=== PATIENT | female | born 1990 | race Caucasian/White ===

== ENCOUNTER 2018-04-20 18:36 | Emergency (ER) | payer SELFPAY ==
[~2018-04-20] VITALS: Ht 175.3 cm; Wt 145.1 kg
[~2018-04-20 18:36] MED LIST: CEPH-264 PO; LEVO125T5 PO
[2018-04-20] MEDS ORDERED: ERYT1OIN6 RIGHTEYE (19:13)
--- NOTE | 2018-04-20 19:13 | PHYS DOC ---
Past History Past Medical History: Hypothyroid, Kidney Stones, Other Past Surgical History: Smoking: Cigarettes, Less than 1pk/day Additional Smoking Information: 2/DAY--CUTTING BACK AND TRYING TO QUIT Alcohol Use: Occasionally Drug Use: None Adult General Chief Complaint Chief Complaint: EYE PROBLEMS HPI HPI Patient is a 27 year old female who presents with complaint of sinus congestion and redness to the right eye. Patient states her sinus congestion has been present over the past 2-3 days. The patient states she has not been taken any medications for her symptoms. Patient developed redness and drainage from the right eye yesterday and states this progressed throughout the day. Patient states the drainage from her right eye has been thick. Patient is concerned she may have pink eye. Denies any sore throat, fever, or shortness of breath. Patient has had postnasal drip with associated coughing that is worse at nighttime. Review of Systems Review of Systems Constitutional: Denies fever or chills [] Eyes: Redness and drainage from right eye, denies change in visual acuity or eye pain[] HENT: Nasal congestion, sinus pressure, postnasal drip, denies sore throat[] Respiratory: Cough, denies shortness of breath[] Cardiovascular: Denies chest pain or edema[] GI: Denies abdominal pain, nausea, vomiting, bloody stools or diarrhea [] : Denies dysuria or hematuria [] Musculoskeletal: Denies back pain or joint pain [] Integument: Denies rash or skin lesions [] Neurologic: Denies headache, focal weakness or sensory changes [] All other systems were reviewed and found to be within normal limits, except as documented in this note. Allergies Allergies Allergies Coded Allergies Type Severity Reaction Last Updated Verified acetaminophen Allergy Unknown Non-specific allergy 02/10/15 No oxycodone Allergy Unknown Non-specific allergy 02/10/15 No propoxyphene Allergy Unknown Non specific allergy 02/10/15 No Physical Exam Physical Exam Constitutional: Well developed, well nourished, no acute distress, non-toxic appearance. [] HENT: Normocephalic, atraumatic, bilateral external ears normal, sinuses nontender to palpation, oropharynx moist, no oral exudates, mild to moderate nasal mucosal edema bilaterally. [] Eyes: PERRLA, EOMI, right conjunctiva and sclera are injected, mucoid watery discharge from right eye. [] Neck: Normal range of motion, no tenderness, supple, no stridor. [] Cardiovascular:Heart rate regular rhythm, no murmur [] Lungs & Thorax: Bilateral breath sounds clear to auscultation [] Abdomen: Bowel sounds normal, soft, no tenderness, no masses, no pulsatile masses. [] Skin: Warm, dry, no erythema, no rash. [] Back: No tenderness, no CVA tenderness. [] Extremities: No tenderness, no cyanosis, no clubbing, ROM intact, no edema. [] Neurologic: Alert and oriented X 3, normal motor function, normal sensory function, no focal deficits noted. [] Current Patient Data Vital Signs Vital Signs Date Time Temp Pulse Resp B/P (MAP) Pulse Ox O2 Delivery O2 Flow Rate FiO2 04/20/18 18:40 98.2 108 20 96 Room Air Lab Results None performed EKG EKG Not performed[] Radiology/Procedures Radiology/Procedures Not performed[] Course & Med Decision Making Course & Med Decision Making Pertinent Labs and Imaging studies reviewed. (See chart for details) Patient appears to have signs of bacterial conjunctivitis on exam. Treated with erythromycin ophthalmic ointment. The patient's sinus pressure appears due to allergic sinusitis versus possible viral sinusitis. Recommended use of Mucinex, Afrin, saline nasal spray, an antihistamine for treatment at home. Also recommended use of warm moist air to help relieve congestion. Recommended follow -up in one week with primary doctor for reevaluation and return the emergency department for any worsening symptoms. Patient was understanding and in agreement with treatment plan.[] Dragon Disclaimer Dragon Disclaimer This electronic medical record was generated, in whole or in part, using a voice recognition dictation system. Departure Departure: Impression: Primary Impression: Bacterial conjunctivitis of right eye Additional Impression: Sinus congestion Disposition: 01 HOME, SELF-CARE Condition: IMPROVED Referrals: DONNA DE LA FUENTE (PCP) Patient Instructions: Bacterial Conjunctivitis Additional Instructions: Follow-up with your primary doctor in 1 week for reevaluation. Return to the emergency department for any worsening symptoms. Scripts Erythromycin Base (Erythromycin) 1 Gm Oint...g. 0.5 INCH RIGHTEYE QID for 5 Days, #1 TUBE Prov: AMBROSE MYRICK MD 04/20/18 Problem Qualifiers AMBROSE MYRICK MD Apr 20, 2018 19:13
[2018-04-20 19:25] VITALS: BP 153/87
[2018-04-20] MEDS: ERYTHROMYCIN 0.5% OPHTH OINTMENT 1GM TUBE. OD ONE (19:28)
== END 2018-04-20 19:27 | disposition home or self-care (01) ==
LOC: ER 18:36
DX: H10.89 Other conjunctivitis (principal); B96.89 Other specified bacterial agents as the cause of diseases classified elsewhere; R09.81 Nasal congestion; E03.9 Hypothyroidism, unspecified; F17.210 Nicotine dependence, cigarettes, uncomplicated; Z87.440 Personal history of urinary (tract) infections; Z88.6 Allergy status to analgesic agent; Z88.5 Allergy status to narcotic agent; Z88.8 Allergy status to other drugs, medicaments and biological substances
CPT/HCPCS: 99283

== ENCOUNTER 2018-07-07 22:30 | Emergency (ER) | payer OTHER ==
[~2018-07-07] VITALS: Ht 175.3 cm; Wt 145.1 kg
[~2018-07-07 22:30] MED LIST changes: +ERYT1OIN6 RIGHTEYE
[2018-07-07] MEDS ORDERED: BUDESONIDE 0.5 MG/2 ML NEBU NEB ONE (22:45)
[2018-07-07] MEDS ORDERED: ALBUTEROL SULFATE 2.5 MG/3 ML NEBU. NEB ONE (22:45)
--- NOTE | 2018-07-07 22:45 | PHYS DOC ---
Past History Past Medical History: Asthma, Hypothyroid, Kidney Stones, Other Past Surgical History: Smoking: Cigarettes, Less than 1pk/day Alcohol Use: Occasionally Drug Use: None Adult General Chief Complaint Chief Complaint: ASTHMA HPI HPI Patient is a 28-year-old female who presents with difficulty breathing that began shortly prior to arrival, she was working up front in the emergency department when the symptoms started. She denies any fever. Denies any recent steroid use, with her last steroids being approximately 7 months ago. [place] any fever, denies any trauma.[] Review of Systems Review of Systems Constitutional: Denies fever or chills [] Eyes: Denies change in visual acuity, redness, or eye pain [] HENT: Denies nasal congestion or sore throat [] Respiratory: See history of present illness[] Cardiovascular: Chest pain or palpitations[] GI: Denies abdominal pain, nausea, vomiting, bloody stools or diarrhea [] : Denies dysuria or hematuria [] Musculoskeletal: Denies back pain or joint pain [] Integument: Denies rash or skin lesions [] Neurologic: Denies headache, focal weakness or sensory changes [] Endocrine: Denies polyuria or polydipsia [] All other systems were reviewed and found to be within normal limits, except as documented in this note. Allergies Allergies Allergies Coded Allergies Type Severity Reaction Last Updated Verified acetaminophen Allergy Unknown Non-specific allergy 02/10/15 No oxycodone Allergy Unknown Non-specific allergy 02/10/15 No propoxyphene Allergy Unknown Non specific allergy 02/10/15 No Physical Exam Physical Exam Constitutional: Well developed, well nourished, no acute distress, non-toxic appearance. [] HENT: Normocephalic, atraumatic, bilateral external ears normal, oropharynx moist, no oral exudates, nose normal. [] Eyes: PERRLA, EOMI, conjunctiva normal, no discharge. [] Neck: Normal range of motion, no tenderness, supple, no stridor. [] Cardiovascular:Heart rate regular rhythm, no murmur [] Lungs & Thorax: Bilateral breath sounds with expiratory wheezes, decreased air flow.[] Abdomen: Not examined. [] Skin: Warm, dry, no erythema, no rash. [] Back: No tenderness, no CVA tenderness. [] Extremities: No tenderness, no cyanosis, no clubbing, ROM intact, no edema. [] Neurologic: Alert and oriented X 3, normal motor function, normal sensory function, no focal deficits noted. [] Psychologic: Affect normal, judgement normal, mood normal. [] EKG EKG [] Radiology/Procedures Radiology/Procedures [] Course & Med Decision Making Course & Med Decision Making Pertinent Labs and Imaging studies reviewed. (See chart for details) Medical decision making: There is no evidence of hypoxia, doubt pneumonia given no fever and rapidity of onset of symptoms. ED course: Patient arrived, was placed in a chair, and tolerated exam well. She was given a breathing treatment after which her oxygen saturation was 100% and her lungs were clear to auscultation. Discussed plan with patient who voiced understanding. All questions were answered.[] Dragon Disclaimer Dragon Disclaimer This electronic medical record was generated, in whole or in part, using a voice recognition dictation system. Departure Departure: Impression: Primary Impression: Asthma exacerbation Disposition: HOME, SELF-CARE Condition: IMPROVED Referrals: DONNA DE LA FUENTE (PCP) Follow-up in 2 days Patient Instructions: Asthma Attacks, Prevention, Asthma, Adult Additional Instructions: Follow-up with your regular doctor in 2 days. Return to the ER if increased difficulty breathing or any other concerns. Scripts Prednisone (PREDNISONE) 50 Mg Tablet 1 TAB PO DAILY for INFLAMMATION, #5 TAB Prov: RABIA HIRSCH DO 07/07/18 Budesonide (BUDESONIDE) 0.5 Mg/2 Ml Ampul.neb 1 VIAL NEB BID for asthma, #60 ML 0 Refills Prov: RABIA HIRSCH DO 07/07/18 Problem Qualifiers Primary Impression: Asthma exacerbation Asthma severity: mild Asthma persistence: intermittent Qualified Codes: J45.21 - Mild intermittent asthma with (acute) exacerbation RABIA HIRSCH DO Jul 07, 2018 22:45
[2018-07-07] MEDS ORDERED: BUDE0.5A11 NEB (22:57)
[2018-07-07] MEDS ORDERED: PRED50TA PO (22:57)
[2018-07-07 23:15] VITALS: BP 129/78
[2018-07-07] MEDS ORDERED: predniSONE 10 MG TABLET PO ONE (23:30)
== END 2018-07-07 23:20 | disposition home or self-care (01) ==
LOC: ER 22:30
DX: J45.21 Mild intermittent asthma with (acute) exacerbation (principal); E03.9 Hypothyroidism, unspecified; F17.210 Nicotine dependence, cigarettes, uncomplicated; Z87.442 Personal history of urinary calculi; Z88.6 Allergy status to analgesic agent; Z88.5 Allergy status to narcotic agent; Z88.8 Allergy status to other drugs, medicaments and biological substances
CPT/HCPCS: 94640; 99283; J7512; J7613; J7626